=== PATIENT | female | born 2000 | race African-American/Black ===

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

== ENCOUNTER 2019-11-11 13:45 | Emergency (ER) | payer OTHER ==
[~2019-11-11] VITALS: Ht 167.6 cm; Wt 65.0 kg
[~2019-11-11 13:45] MED LIST changes: +IBUPROFEN600 MG PO
[2019-11-11 14:10] VITALS: BP 110/72
== END 2019-11-11 14:38 | disposition left against medical advice (07) ==
LOC: ED 13:45 → LWOBS 14:37 → ED 14:37 → LWOBS 14:38
DX: Z91.19 Patient's noncompliance with other medical treatment and regimen (principal)